=== PATIENT | female | born 2005 | race Hispanic/Latino ===

== ENCOUNTER 2024-09-15 21:42 | Emergency (ER) | payer OTHER, SELFPAY ==
--- NOTE | 2024-09-15 22:34 | RAD REPORT ---
EXAM: Chest Single View HISTORY: 19 years Female CHEST PAIN COMPARISON: None. FINDINGS: LUNGS/PLEURA: The lungs are clear. No pleural effusions or pneumothorax. No pulmonary edema. CARDIAC/MEDIASTINUM: The cardiac silhouette is within normal limits. UPPER ABDOMEN: No significant abnormality. BONES: No acute abnormality. LINES/TUBES/OTHER: N/A IMPRESSION: No evidence of acute cardiopulmonary disease.
[2024-09-15] MEDS ORDERED: ACETAMINOPHEN 500 MG TAB ONE (23:52)
--- NOTE | 2024-09-15 23:52 | RAD REPORT ---
EXAM DESCRIPTION: Extrem Venous W Compress Fabiano RadLex: US EXTREMITY VEINS BILATERAL CLINICAL HISTORY: 19 years Female; PAIN TECHNIQUE: Spectral analysis and color/grayscale sonographic images of both legs were obtained utilizing a high- frequency linear array transducer supplemented with color Doppler, compression and augmentation techniques. COMPARISON: None. FINDINGS: Right leg veins: Common femoral: normal Greater saphenous: normal Superficial femoral: normal Popliteal: normal Calf Veins: normal Left leg veins: Common femoral: normal Greater saphenous: normal Superficial femoral: normal Popliteal: normal Calf Veins: normal IMPRESSION: 1. No sonographic evidence for lower extremity deep venous thrombosis in either leg. Electronically signed by: Yash Reynolds MD 09/15/2024 11:47 PM [facility] Z9 Due to temporary technical issues with the PACS/Power scribe reporting system, reports are being sign ed by the in-house radiologist without review as a courtesy to ensure prompt reporting the interpreting rad iologist is fully responsible for the content of the report. Transcribed Date/Time: 09/15/2024 11:52 PM
[2024-09-16 00:09] LABS: Absolute Eosinophils 0.1 K/uL (0-0.5); Absolute Lymphocytes (CBC) 2.2 K/uL (0.7-4.9); Absolute Monocytes 0.5 K/uL (0.1-1.3); Absolute Neutrophil 2.8 K/uL (1.8-8.0); Basophils % 0.6 % (0-1.3); Eosinophils % 2.2 % (0-4.4); Hematocrit 36.4 % (36.0-45.0); Hemoglobin 12.5 g/dL (12.0-15.0); Lymphocytes % 38.6 % (15.3-44.8); MCH 29.5 pg (27.0-35.0); MCHC 34.5 g/dL (32.0-36.0); MCV 85.6 fL (80-100); MPV 8.5 fL (7.6-11.3); Monocytes % 9.1 % (3.3-12.3); Neutrophils % 49.5 % (41.7-73.7); Platelets 323 thou/uL (152-406); RBC Red Blood Cell Count 4.25 M/uL (3.86-4.86)
[2024-09-16 00:12] LABS: Specific Gravity 1.024 (1.005-1.030)
[2024-09-16 00:24] LABS: PT Prothrombin Time 11.1 SECONDS (10.0-13.0); Protime INR 0.97
[2024-09-16 00:33] LABS: ALT/SGPT 20 U/L (13-56); AST/SGOT 13 U/L (15-37); Albumin 3.7 g/dL (3.4-5.0); Albumin/Globulin Ratio 1.1 (1.1-1.8); Alkaline Phosphatase 58 U/L (45-117); Anion Gap 8.3 mEq/L (5.0-15.0); BUN Blood Urea Nitrogen 13 mg/dL (7-18); Bicarbonate 26 mEq/L (21-32); Bilirubin Total 0.3 mg/dL (0.2-1.0); Globulin 3.5 g/dL (2.3-3.5); Glomerular Filtration Rate 104 ml/min (=/>90); Glucose Level 82 mg/dL (74-106); Magnesium 2.6 mg/dL (1.6-2.4); Potassium 3.3 mEq/L (3.5-5.1); Protein, Total 7.2 g/dL (6.4-8.2); Sodium Level 137 mEq/L (136-145)
[2024-09-16 00:48] LABS: Bilirubin Direct < 0.2 mg/dL (0-0.2); Bilirubin Indirect, Calculated 0.1 mg/dL (0.2-0.8); Troponin High Sensitivity < 3.0 pg/mL (<58.9)
[2024-09-16 00:49] LABS: Barbiturates NEGATIVE (NEGATIVE); Benzodiazepines NEGATIVE (NEGATIVE); Cocaine NEGATIVE (NEGATIVE); METHAMPHETAM NEGATIVE (NEGATIVE); Methadone NEGATIVE (NEGATIVE); Opiates NEGATIVE (NEGATIVE); Phencyclidine NEGATIVE (NEGATIVE); THC Cannibis NEGATIVE (NEGATIVE)
[2024-09-16 00:50] LABS: D-Dimer < 0.215 FEUug/mL (0-0.500)
--- NOTE | 2024-09-16 01:24 | EDPHYS ---
Physician Documentation [facility] Name: Fnai Enriquez Age: 19 yrs Sex: Female : 2005 Arrival Date: 09/15/2024 Time: 21:42 Bed 17 Private MD: ED Physician Garfield Zaman HPI: 09/15 22:30 This 19 yrs old Female presents to ER via Ambulatory with complaints of cp Headache, Chest Tightness. 22:30 The patient or guardian reports chest pain that is located primarily in the anterior cp chest wall, left. Associated signs and symptoms: Pertinent positives: headache. 22:30 Duration: The patient or guardian reports a single episode, that is still ongoing, but cp improving. Patient reports chest pain started while driving about 30 minutes [employer]. Patient c/o headache and believes pain in chest is due to anxiety. 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 - Infectious Disease History:: Denies. - Social history:: Smoking status: Patient denies any tobacco usage or history of. ROS: 22:33 Constitutional: Negative for body aches, chills, fever, poor PO intake, cp 22:33 Eyes: Negative for injury, pain, redness, and discharge, cp 22:33 ENT: Negative for drainage from ear(s), ear pain, sore throat, difficulty swallowing, difficulty handling secretions, 22:33 Cardiovascular: Positive for chest pain, Negative for edema, palpitations, 22:33 Respiratory: Negative for cough, shortness of breath, wheezing, 22:33 Abdomen/GI: Negative for abdominal pain, vomiting, diarrhea, constipation, 22:33 Back: Negative for pain at rest, pain with movement, 22:33 Neuro: Positive for headache, Negative for altered mental status, dizziness, numbness, syncope, near syncope, weakness, 22:33 All other systems are negative, Exam: 22:35 Constitutional: The patient appears in no acute distress, alert, awake, cp non-diaphoretic, non-toxic, well developed, well nourished, 22:35 Head/Face: Normocephalic, atraumatic. cp 22:35 Eyes: Periorbital structures: appear normal, Conjunctiva: normal, no exudate, no injection, Sclera: no appreciated abnormality, Lids and lashes: appear normal, bilaterally, 22:35 ENT: External ear(s): are unremarkable, Nose: is normal, Mouth: Lips: moist, Oral mucosa: moist, Posterior pharynx: Airway: no evidence of obstruction, patent, 22:35 Neck: ROM/movement: is normal, is supple, without pain, no range of motions limitations, 22:35 Chest/axilla: Inspection: normal, 22:35 Cardiovascular: Rate: normal, Rhythm: regular, Edema: is not appreciated, JVD: is not appreciated, 22:35 Respiratory: the patient does not display signs of respiratory distress, Respirations: normal, no use of accessory muscles, no retractions, labored breathing, is not present, Breath sounds: are clear throughout, no decreased breath sounds, no stridor, no wheezing, 22:35 Abdomen/GI: Inspection: abdomen appears normal, Palpation: abdomen is soft and non-tender, in all quadrants, 22:35 Back: pain, is absent, ROM is normal, 22:35 Musculoskeletal/extremity: DVT Exam: pain, that is mild, of the right leg, of the left leg, tenderness, that is mild, of the right leg, of the left leg, 22:35 Neuro: Orientation: to person, place \T\ time. Mentation: is normal, Motor: moves all fours, strength is normal, Sensation: is normal, 09/16 05:53 ECG was reviewed by the Attending Physician. EKG 2011 normal sinus rhythm, normal sp4 EKG Vital Signs: 09/15 21:53 BP 129 / 86; Pulse 62; Resp 17; Temp 97.1(TE); Pulse Ox 100% ; Weight 74.84 kg; Height cm10 5 ft. 7 in. ; Pain 4/10; 22:07 BP 118 / 76; Pulse 60; Resp 18; Pulse Ox 100% on R/A; ay 22:30 BP 120 / 79; Pulse 67; Resp 19; Pulse Ox 100% on R/A; ay 23:00 BP 117 / 74; Pulse 64; Resp 17; Pulse Ox 100% ; ay 09/16 00:00 BP 113 / 79; Pulse 58; Resp 14; Pulse Ox 100% on R/A; ay 01:48 BP 112 / 70; Pulse 67; Resp 19; Pulse Ox 100% ; ay 09/15 21:53 Body Mass Index 25.84 (74.84 kg, 170.18 cm) cm10 02 21:53 Pain Scale: Adult cm10 Jatinder Coma Score: 09/15 22:00 Eye Response: spontaneous(4). Motor Response: obeys commands(6). Verbal Response: ay oriented(5). Total: 15. MDM: 21:57 Medical Screening Exam initiated cp 09/16 01:23 Data reviewed: vital signs, nurses notes, lab test result(s), EKG, radiologic studies, cp plain films, ultrasound, and as a result, I will discharge patient. 01:23 Differential diagnosis: acute myocardial infarction, chest wall pain, pericarditis, cp pleurisy, pneumonia, pneumothorax, pulmonary embolus, migraine. I considered the following discharge prescriptions or medication management in the emergency department Medications were administered in the Emergency Department. See MAR. Independent interpretation of the following test(s) in the Emergency Department EKG: See my EKG interpretation above. Counseling: I had a detailed discussion with the patient and/or guardian regarding the historical points, exam findings, and any diagnostic results supporting the discharge/admit diagnosis, lab results, radiology results, to return to the emergency department if symptoms worsen or persist or if there are any questions or concerns that arise at home. Response to treatment: the patient's symptoms have markedly improved after treatment, and as a result, I will discharge patient. Special discussion: Based on the patient's history, exam, and Dx evaluation, there is no indication for emergent intervention or inpatient Tx. It is understood by the patient/guardian that if the Sx's persist or worsen they need to return immediately for re-evaluation. 09/15 21:58 Order name: Basic Metabolic Panel; Complete Time: 01:11 cp 09/16 01:11 Interpretation: Normal except: K 3.3. 09/15 21:58 Order name: CBC with Diff; Complete Time: 01:11 cp 09/15 21:58 Order name: D-Dimer; Complete Time: 01:11 cp 09/15 21:58 Order name: LFT's; Complete Time: 01:11 cp 09/16 01:12 Interpretation: Normal except: AST 13; IBILI, CALC 0.1. cp 09/15 21:58 Order name: Magnesium; Complete Time: 01:11 cp 09/16 01:12 Interpretation: Abnormal: MG 2.6. cp 09/15 21:58 Order name: PT-INR; Complete Time: 01:11 cp 09/15 21:58 Order name: Troponin HS; Complete Time: 01:11 cp 09/15 21:58 Order name: Test, Urine; Complete Time: 01:11 cp 09/15 21:58 Order name: UDS; Complete Time: 01:11 cp 09/15 21:58 Order name: XRAY Chest (1 view); Complete Time: 01:11 cp 09/15 22:51 Order name: US Extremity Venous W Compression Fabiano cp 09/15 21:58 Order name: Cardiac monitoring; Complete Time: 23:55 cp 09/15 21:58 Order name: EKG - Nurse/Tech; Complete Time: 22:04 cp 09/15 21:58 Order name: IV Saline Lock; Complete Time: 23:55 cp 09/15 21:58 Order name: Labs collected and sent; Complete Time: 23:55 cp 09/15 21:58 Order name: O2 Per Protocol; Complete Time: 23:55 cp 09/15 21:58 Order name: O2 Sat Monitoring; Complete Time: 23:55 cp EC/28 20:12 Rate is 70 beats/min. Rhythm is regular, Normal Sinus Rhythm. QRS [place] is Normal. [place] sp4 interval is normal. QRS interval is normal. QT interval is normal. No Q waves. T waves are Normal. No ST changes noted. Clinical impression: Normal ECG. Interpreted by me. Reviewed by me. Administered Medications: 23:54 Drug: Acetaminophen PO 1000 mg PO once Route: PO; ay 09/16 01:51 Follow up: Response: No adverse reaction ay Disposition Summary: 09/16/24 01:24 Discharge Ordered Notes: Location: Home cp Problem: new cp Symptoms: have improved cp Condition: Stable cp Diagnosis - Chest pain, unspecified cp - Headache cp Followup: cp - With: Private Physician - When: 2 - 3 days - Reason: Recheck today's complaints Discharge Instructions: - Discharge Summary Sheet cp - Nonspecific Chest Pain, Adult cp - General Headache Without Cause cp - Managing Stress, Adult cp - Managing Anxiety, Adult cp Forms: - Medication Reconciliation Form cp - Antibiotic Education cp - Prescription Opioid Use cp - Patient Portal Instructions cp - Leadership Thank You Letter cp Addendum: 09/19/2024 21:11 Co-signature as Attending Physician, Garfield Zaman MD I agree with the assessment s p4 and plan of care. I reviewed the patient's care provided by the Advanced Practice Provider and agree with the diagnosis and treatment plan. Signatures: Dispatcher [employer] [facility] Chico Jimenez PA PA cp Potepalov, Sergey, MD MD sp4 Umm Hoover RN RN cm10 Sonny Young RN RN ay Corrections: (The following items were deleted from the chart) 09/15 21:59 21:59 BASIC METABOLIC PANEL+C.LAB.BRZ ordered. [facility] 21:59 21:59 CBC+H.LAB.BRZ ordered. [facility] 21:59 21:59 D-DIMER+COAG.LAB.BRZ ordered. [facility] 21:59 21:59 HEPATIC FUNCTION+C.LAB.BRZ ordered. [facility] 21:59 21:59 MAGNESIUM+C.LAB.BRZ ordered. [facility] 21:59 21:59 PROTIME (+INR)+COAG.LAB.BRZ ordered. [facility] 21:59 21:59 Troponin High Sensitivity+C.LAB.BRZ ordered. [facility] 21:59 21:59 Test, Urine+UC.LAB.BRZ ordered. [facility] 21:59 21:59 URINE DRUG SCREEN+UC.LAB.BRZ ordered. [facility] 21:59 21:59 Chest Single View+RAD.RAD.BRZ ordered. [facility] 09/16 12:20 05:53 This 19 yrs old Female presents to ER via Ambulatory with complaints of cp Headache, Chest Tightness. sp4 12:20 09/15 05:53 The patient or guardian reports chest pain that is located primarily in the cp anterior chest wall, left, cp 09/16 12:20 09/15 05:53 Associated signs and symptoms: Pertinent positives: headache, cp cp
--- NOTE | 2024-09-16 01:24 | ER ---
Nurse's Notes [facility] Name: Fani Enriquez Age: 19 yrs Sex: Female : 2005 Arrival Date: 09/15/2024 Time: 21:42 Bed 17 Private MD: Diagnosis: Chest pain, unspecified;Headache Presentation: 09/15 21:53 Chief complaint: Patient states: Left sided chest pain that radiates to back onset 30 cm10 minutes ago. Pt also reports headache. Pt states that she has been having anxiety due to being away from home. Coronavirus screen: Client denies travel out of the [place] in the last 14 days. Ebola Screen: Patient denies travel to an Ebola-affected area in the 21 days before illness onset. Initial Sepsis Screen: Does the patient meet any 2 criteria? No. Patient's initial sepsis screen is negative. Does the patient have a suspected source of infection? No. Patient's initial sepsis screen is negative. Risk Assessment: Do you want to hurt yourself or someone else? Patient reports no desire to harm self or others. Onset of symptoms was September 15, 2024. 21:53 Method Of Arrival: Ambulatory cm10 21:53 Acuity: ALICIA 3 cm10 Triage Assessment: 21:56 General: Appears in no apparent distress. uncomfortable, Behavior is calm, cooperative. cm10 Neuro: No deficits noted. Level of Consciousness is awake, alert, obeys commands, Oriented to person, place, time, situation, Appropriate for age. Respiratory: No deficits noted. Airway is patent Respiratory effort is even, unlabored, Respiratory pattern is regular, symmetrical. 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 - Infectious Disease History:: Denies. - Social history:: Smoking status: Patient denies any tobacco usage or history of. Screenin:00 [facility] ED Fall Risk Assessment (Adult) History of falling in the last 3 months, ay including since admission No falls in past 3 months (0 pts) Confusion or Disorientation No (0 pts) Intoxicated or Sedated No (0 pts) Impaired Gait No (0 pts) Mobility Assist Device Used No (0 pt) Altered Elimination No (0 pt) Score/Fall Risk Level 0 - 2 = Low Risk Oriented to surroundings, Maintained a safe environment, Educated pt \T\ family on fall prevention, incl call for assistance when getting out of bed. Abuse screen: Denies threats or abuse. Denies injuries from another. Nutritional screening: No deficits noted. Tuberculosis screening: No symptoms or risk factors identified. Assessment: 22:00 General: Appears in no apparent distress. uncomfortable, Behavior is calm, cooperative. ay Pain: Complains of pain in Chest pain, left jaw pain Pain radiates to back and left shoulder Pain currently is 5 out of 10 on a pain scale. 22:00 Neuro: Level of Consciousness is awake, alert, obeys commands, Oriented to person, ay place, time, situation, Speech is normal. Cardiovascular: Reports chest pain, Denies nausea, shortness of breath, vomiting, Capillary refill < 3 seconds Rhythm is sinus rhythm. Respiratory: Airway is patent Respiratory effort is even, unlabored, Respiratory pattern is regular, symmetrical. GI: No signs and/or symptoms were reported involving the gastrointestinal system. : No signs and/or symptoms were reported regarding the genitourinary system. EENT: No signs and/or symptoms were reported regarding the EENT system. Derm: No signs and/or symptoms reported regarding the dermatologic system. Vital Signs: 21:53 BP 129 / 86; Pulse 62; Resp 17; Temp 97.1(TE); Pulse Ox 100% ; Weight 74.84 kg; Height cm10 5 ft. 7 in. ; Pain 4/10; 22:07 BP 118 / 76; Pulse 60; Resp 18; Pulse Ox 100% on R/A; ay 22:30 BP 120 / 79; Pulse 67; Resp 19; Pulse Ox 100% on R/A; ay 23:00 BP 117 / 74; Pulse 64; Resp 17; Pulse Ox 100% ; ay 09/16 00:00 BP 113 / 79; Pulse 58; Resp 14; Pulse Ox 100% on R/A; ay 01:48 BP 112 / 70; Pulse 67; Resp 19; Pulse Ox 100% ; ay 09/15 21:53 Body Mass Index 25.84 (74.84 kg, 170.18 cm) cm10 09/15 21:53 Pain Scale: Adult cm10 Jatinder Coma Score: 09/15 22:00 Eye Response: spontaneous(4). Motor Response: obeys commands(6). Verbal Response: ay oriented(5). Total: 15. ED Course: 21:46 Patient arrived in ED. gm2 21:54 Chico Jimenez PA is PHCP. cp 21:54 Garfield Zaman MD is Attending Physician. cp 21:55 Triage completed. cm10 21:56 Arm band placed on left wrist. Patient placed in an exam room, on a stretcher. EKG cm10 completed in triage. Results shown to MD. 21:56 EKG done, by ED staff, reviewed by Chico MACDONALD. cm10 22:00 Patient has correct armband on for positive identification. Bed in low position. Call ay light in reach. Side rails up X2. 22:00 Inserted saline lock: 20 gauge in right antecubital area, using aseptic technique. ay 22:24 XRAY Chest (1 view) In Process Unspecified. EDMS 22:47 Sonny Young, RN is Primary Nurse. ay 23:33 US Extremity Venous W Compression Fabiano In Process Unspecified. EDMS 23:56 Basic Metabolic Panel Sent. ay 23:56 CBC with Diff Sent. ay 23:56 D-Dimer Sent. ay 23:56 LFT's Sent. ay 23:56 Magnesium Sent. ay 23:56 PT-INR Sent. ay 23:56 Troponin HS Sent. ay 09/16 01:48 IV discontinued, intact, bleeding controlled, No redness/swelling at site. Pressure ay dressing applied. Administered Medications: 09/15 23:54 Drug: Acetaminophen PO 1000 mg PO once Route: PO; ay 09/16 01:51 Follow up: Response: No adverse reaction ay Outcome: 01:24 Discharge ordered by MD. cp 01:48 Discharged to home ambulatory, ay 01:48 Condition: stable 01:48 Discharge instructions given to patient, Instructed on discharge instructions, follow up and referral plans. Demonstrated understanding of instructions, follow-up care, 01:50 Patient left the ED. ay Signatures: Dispatcher [employer] EDMS Chico Jimenez PA PA cp Martinez, Clarissa RN RN cm10 Agustina Molina 2 Yakubu, Awudu, RN RN ay
[2024-09-16 02:11] VITALS: TEMP 97.1; O2SAT 100
[2024-09-16 02:21] VITALS: BP 112/70
--- NOTE | 2024-09-18 12:10 | EKG ---
Test Date: 2024-09-15 Test Time: 21:56:26 Aircraft Manager: DANYELLE MEASUREMENT RESULTS: Intervals: Rate: 63 [place]: 152 QRSD: 76 QT: 390 QTc: 399 [place]: P: 75 [place]: 152 QRS: 89 T: 80 INTERPRETIVE STATEMENTS: Normal sinus rhythm Normal ECG No previous ECG available for comparison Electronically Signed On 09-18-24 12:05:16 LINING BRUSHER by Gee Dalton
== END 2024-09-16 01:50 | disposition home or self-care (01) ==
LOC: ER 21:42
DX: R07.89 Other chest pain (principal); R51.9 Headache, unspecified
CPT/HCPCS: 36415; 71045; 80048; 80076; 80307; 81025; 83735; 84484; 85025; 85379; 85610; 93005; 93970; 99284